=== PATIENT | female | born 1975 | race Caucasian/White ===

== ENCOUNTER 2024-01-30 14:21 | Emergency (ER) | payer BC, OTHER ==
[2024-01-30] MEDS ORDERED: Sulfamethoxazole/Trimethoprim 800-160 MG Tab ONE (15:00)
[2024-01-30 15:01] LABS: APPEARANCE,URINE SLIGHTLY CLOUDY (CLEAR); BILIRUBIN,URINE NEGATIVE (NEGATIVE); GLUCOSE,URINE NEGATIVE (NEGATIVE); KETONES,URINE NEGATIVE (NEGATIVE); LEUKOCYTE ESTERASE,URINE SMALL (NEGATIVE); NITRITE,URINE NEGATIVE (NEGATIVE); OCCULT BLOOD,URINE LARGE (NEGATIVE); PROTEIN,URINE 100 mg/dL (NEGATIVE); UROBILINOGEN,URINE 0.2 E.U./dL (0.2-1.0)
[2024-01-30 15:02] LABS: COLOR,URINE YELLOW
[2024-01-30 15:03] LABS: EPITHELIAL CELLS,URINE FEW /HPF; RBC,URINE 30-40 /HPF; WBC CLUMPS,URINE OCCASIONAL /HPF; WBC,URINE 75-100 /HPF
== END 2024-01-30 15:14 | disposition home or self-care (01) ==
LOC: LB.ED 14:21
DX: N39.0 Urinary tract infection, site not specified (principal); Z90.710 Acquired absence of both cervix and uterus; Z88.2 Allergy status to sulfonamides; Z88.8 Allergy status to other drugs, medicaments and biological substances; Z88.6 Allergy status to analgesic agent
CPT/HCPCS: 81001; 99283; A9270